=== PATIENT | male | born 1930 | race Hispanic/Latino ===

== ENCOUNTER 2018-07-25 18:39 | Emergency (ER) | payer OTHER, MEDICARE ==
[2018-07-25] MEDS ORDERED: CEFTRIAXONE SODIUM 1 GM ONE (18:55)
[2018-07-25 19:01] LABS: BASOPHILS % (AUTO) 0.4 % (0.0-5.0); EOSINOPHILS % (AUTO) 0.2 % (0.0-8.0); HEMATOCRIT 34.2 % (42-54); LYMPHOCYTES % (AUTO) 8.3 % (21.0-51.0); MEAN CORPUSCULAR HEMOGLOBIN 31.8 pg (27.0-33.0); MEAN CORPUSCULAR HGB CONC 33.9 g/dL (32.0-36.0); MEAN CORPUSCULAR VOLUME 93.8 fL (79-99); MONOCYTES % (AUTO) 5.5 % (3.0-13.0); NEUTROPHILS % (AUTO) 85.6 % (40.0-77.0); PLATELET COUNT (AUTO) 238 K/uL (130-400); RED BLOOD CELL COUNT(AUTO) 3.64 MIL/uL (4.50-6.20); RED CELL DISTRIBUTION WIDTH 13.6 % (11.0-15.5); WHITE BLOOD COUNT (AUTO) 12.1 K/uL (4.8-10.8)
[2018-07-25 19:26] LABS: CARBON DIOXIDE 23 mmol/L (21-32); CHLORIDE 108 mmol/L (101-111); CREATININE 1.2 mg/dL (0.5-1.5); GLOMERULAR FILTR. RATE CALC 61 mL/min (>60); GLUCOSE,RANDOM 93 mg/dL (70-105); POTASSIUM 3.6 mmol/L (3.5-5.1); SODIUM SERUM 142 mmol/L (136-145); UREA NITROGEN, BLOOD 25 mg/dL (7-18)
[2018-07-25] MEDS ORDERED: LEVOFLOXACIN 750 MG/D5W 150 ML 150 ML ONE (19:28)
[2018-07-25 19:29] LABS: INR 1.07 (0.85-1.15); PARTIAL THROMBOPLASTIN TIME 26.1 SEC (26.3-35.5); PROTHROMBIN TIME 11.2 SEC (9.6-11.6)
[2018-07-25 19:39] LABS: ALANINE AMINOTRANSFERASE 19 U/L (12-78); ASPARTATE AMINOTRANSFERASE 25 U/L (10-37); BILIRUBIN,TOTAL 0.6 mg/dL (0.2-1.0); CREATINE KINASE, TOTAL 47 U/L (21-232); MYOGLOBIN 60 ng/mL (10-92); TOTAL PROTEIN, SERUM 6.6 g/dL (6.0-8.3); TROPONIN I < 0.04 ng/mL (0.00-0.06)
[2018-07-25 19:50] LABS: APPEARANCE,URINE Clear (CLEAR); BILIRUBIN,URINE Negative (NEGATIVE); COLOR,URINE Yellow (YELLOW); GLUCOSE, URINE (UA) Negative (NEGATIVE); KETONES,URINE Trace mg/dL (NEGATIVE); LEUKOCYTE ESTERASE ,URINE Small (NEGATIVE); NITRATE,URINE Positive (NEGATIVE); OCCULT BLOOD,URINE Negative (NEGATIVE); PROTEIN,URINE Trace (NEGATIVE)
[2018-07-25 19:58] LABS: BACTERIA,URINE Few /HPF (None Seen); MUCUS,URINE Few LPF (None Seen); RBC,URINE 0-1 /HPF (0-1); SQUAMOUS EPITHELIAL CELL,UR Rare /HPF (0-2)
== END 2018-07-25 21:31 | disposition home or self-care (01) ==
LOC: EDH 18:39
DX: N39.0 Urinary tract infection, site not specified (principal); R05 Cough; G20 Parkinson's disease
CPT/HCPCS: 36415; 71045; 80053; 81001; 82550; 83605; 83874; 84484; 85025; 85610; 85730; 87040 ×2; 87077; 87088; 87186; 87804 ×2; 93005; 96365; 96366; 96375; 99285; J0696; J1956

== ENCOUNTER 2019-07-21 20:14 | Inpatient (IN) | payer OTHER, MEDICARE ==
[~2019-07-21] VITALS: Ht 165.1 cm; Wt 64.4 kg
[2019-07-21] MEDS ORDERED: ACETAMINOPHEN EXTRA STRENGTH 500 MG TABLET ONE (20:21)
[2019-07-21] MEDS ORDERED: SODIUM CHLORIDE 0.9% 1000ML 2,000 ML IV ONE (20:41)
[2019-07-21 20:42] LABS: BASOPHILS % (AUTO) 0.6 % (0.0-5.0); EOSINOPHILS % (AUTO) 0.2 % (0.0-8.0); HEMATOCRIT 35.1 % (42-54); LYMPHOCYTES % (AUTO) 14.2 % (21.0-51.0); MEAN CORPUSCULAR HEMOGLOBIN 32.1 pg (27.0-33.0); MEAN CORPUSCULAR HGB CONC 34.4 g/dL (32.0-36.0); MEAN CORPUSCULAR VOLUME 93.4 fL (79-99); MONOCYTES % (AUTO) 7.2 % (3.0-13.0); NEUTROPHILS % (AUTO) 77.8 % (40.0-77.0); PLATELET COUNT (AUTO) 268 K/uL (130-400); RED BLOOD CELL COUNT(AUTO) 3.76 MIL/uL (4.50-6.20); RED CELL DISTRIBUTION WIDTH 13.4 % (11.0-15.5); WHITE BLOOD COUNT (AUTO) 8.6 K/uL (4.8-10.8)
[2019-07-21] MEDS ORDERED: CEFTRIAXONE SODIUM 2 GM VIAL ONE (20:42)
[2019-07-21 20:48] LABS: APPEARANCE,URINE CLOUDY (CLEAR); BILIRUBIN,URINE SMALL (NEGATIVE); COLOR,URINE BROWN (YELLOW); GLUCOSE, URINE (UA) NEGATIVE (NEGATIVE); KETONES,URINE 5 mg/dL (NEGATIVE); LEUKOCYTE ESTERASE ,URINE MODERATE (NEGATIVE); NITRATE,URINE POSITIVE (NEGATIVE); OCCULT BLOOD,URINE LARGE (NEGATIVE); PH,URINE 6.5 (5.0-8.0); PROTEIN,URINE 100 mg/dL (NEGATIVE)
[2019-07-21 20:50] LABS: CARBON DIOXIDE 27 mmol/L (21-32); CHLORIDE 107 mmol/L (101-111); CREATININE 1.2 mg/dL (0.5-1.5); GLOMERULAR FILTR. RATE CALC 61 mL/min (>60); GLUCOSE,RANDOM 131 mg/dL (70-105); POTASSIUM 4.3 mmol/L (3.5-5.1); SODIUM SERUM 142 mmol/L (136-145); UREA NITROGEN, BLOOD 31 mg/dL (7-18)
[2019-07-21 20:55] LABS: INR 1.04 (0.85-1.15); PARTIAL THROMBOPLASTIN TIME 27.1 SEC (26.3-35.5); PROTHROMBIN TIME 10.9 SEC (9.6-11.6)
[2019-07-21 21:01] LABS: ALANINE AMINOTRANSFERASE 20 U/L (12-78); ALBUMIN 3.2 g/dL (3.5-5.0); ASPARTATE AMINOTRANSFERASE 32 U/L (10-37); BILIRUBIN,TOTAL 0.3 mg/dL (0.2-1.0); CREATINE KINASE, TOTAL 70 U/L (21-232); MYOGLOBIN 74 ng/mL (10-92); TOTAL PROTEIN, SERUM 7.1 g/dL (6.0-8.3); TROPONIN I < 0.04 ng/mL (0.00-0.06)
[2019-07-21 21:03] LABS: BACTERIA,URINE Many /HPF (None Seen); MUCUS,URINE Few LPF (None Seen); WBC,URINE 26-50 /HPF (0-1)
[2019-07-21] MEDS ORDERED: VANCOMYCIN 1GM+NS 250ML 250 ML IV ONE (21:41)
[2019-07-21 23:00] VITALS: BP 166/89
[2019-07-21] MEDS ORDERED: SODIUM CHLORIDE 0.9% 1000ML 1,000 ML IV ONE (23:30)
[2019-07-21] MEDS ORDERED: PHARMACY COMMUNICATION MISC SCH (23:45)
[2019-07-21] MEDS: SODIUM CHLORIDE 0.9% 1000ML 1,000 ML IV SCH (23:45)
[2019-07-21] MEDS ORDERED: IBUPROFEN 600 MG TABLET PO PRN (23:45)
[2019-07-22] MEDS ORDERED: ZOSYN 3.375GM+NS 50ML 50 ML IV SCH
[2019-07-22 03:00] VITALS: BP 102/87
[2019-07-22 08:00] VITALS: BP 186/89
--- NOTE | 2019-07-22 08:00 | NUR ---
PT WITH HOB UP AND REVIEW PLAN OF CARE WITH . . PT HAS A HX IF DEMENTIA. PT IS NOT ABLE TO FOCUS WITH SOME COMMANDS. BED LEVEL DOWN AND CALL LIGHT IN REACH.
[2019-07-22 11:38] VITALS: BP 150/71
[2019-07-22] MEDS ORDERED: ONDANSETRON HCL 4 MG/2 ML VIAL IV PRN (13:30)
[2019-07-22] MEDS ORDERED: LACTULOSE 20 GM/30 ML UDCUP PO PRN (13:30)
[2019-07-22] MEDS ORDERED: NITROGLYCERIN 0.4 MG SL TAB SL PRN (13:30)
[2019-07-22] MEDS ORDERED: DiphenhydrAMINE HCL 50 MG/ML VIAL IV PRN (13:30)
[2019-07-22] MEDS ORDERED: POTASSIUM CHLORIDE 20MEQ/100ML 100 ML IV PRN (13:30)
[2019-07-22] MEDS ORDERED: POTASSIUM CHLORIDE 20 MEQ ERTAB PO PRN (13:30)
[2019-07-22] MEDS ORDERED: LIDOCAINE HCL-MPF 1% 2ML VIAL IV PRN (13:30)
[2019-07-22] MEDS ORDERED: ACETAMINOPHEN 325 MG TAB PO PRN ×2 (13:30)
[2019-07-22] MEDS ORDERED: GUAIFENESIN-DM 200/20 MG 10 ML PO PRN (13:30)
[2019-07-22] MEDS ORDERED: CARB1TAB23 PO (13:37)
[2019-07-22] MEDS ORDERED: TRAZ150T79 PO (13:37)
[2019-07-22] MEDS: ZOSYN 3.375GM+NS 50ML 50 ML IV SCH ×2 (14:26→21:40)
[2019-07-22] MEDS: SODIUM CHLORIDE 0.9% 1000ML 1,000 ML IV SCH (14:27)
[2019-07-22] MEDS: FUROSEMIDE 10 MG/ML 2ML VIAL IV SCH (14:28)
[2019-07-22 16:00] VITALS: BP 172/103
[2019-07-22] MEDS: IPRATROPIUM/ALBUTEROL SULFATE 3 ML SOLUTION IH SCH ×2 (18:18→23:02)
[2019-07-22 19:00] VITALS: BP 191/92
[2019-07-22] MEDS: LEVODOPA PO SCH (21:00)
[2019-07-22] MEDS: CARBIDOPA PO SCH (21:00)
[2019-07-22] MEDS: TRAZODONE HCL 50 MG TAB PO SCH (21:00)
[2019-07-22] MEDS: FAMOTIDINE/PF 20 MG/2 ML VIAL IV SCH (21:39)
[2019-07-22] MEDS: HYDRALAZINE HCL 20 MG/ML VIAL IV PRN (21:40)
--- NOTE | 2019-07-22 21:46 | NUR ---
home medications already taken PATIENT'S REPORTS THAT SHE ALREADY ADMINISTERED THE DESERYL AND LEVODOPA FROM PATIENT'S HOME MEDICATIONS. INFORMED PATIENT AND TO INFORM THE NURSE WHEN TAKING MEDICATIONS AND THAT WE HAVE THE MEDICATIONS TO ADMINISTER TO THE PATIENT. PATIENT'S SAID SHE UNDERSTOOD FOR NEXT TIME.
[2019-07-22 23:00] VITALS: BP 137/75
--- NOTE | 2019-07-22 23:45 | NUR ---
RT UNABLE TO PROVIDE CPT PATIENT WITH INCREASED TREMORS AND AGITATION AT BEGINNING OF CPT. RT SAID SHE WAS UNSUCCESSFUL TO COMPLETE CPT. PRIOR TO TREATMENT PATIENT WAS CLEAR UPON MY ASSESSMENT. WILL CONTINUE TO MONITOR FOR ANY RESPIRATORY CHANGES.
[2019-07-23 03:00] VITALS: BP 136/82
[2019-07-23] MEDS: ZOSYN 3.375GM+NS 50ML 50 ML IV SCH ×3 (05:04→21:26)
[2019-07-23 05:45] LABS: BASOPHILS % (AUTO) 0.5 % (0.0-5.0); EOSINOPHILS % (AUTO) 0.1 % (0.0-8.0); HEMATOCRIT 33.7 % (42-54); LYMPHOCYTES % (AUTO) 24.3 % (21.0-51.0); MEAN CORPUSCULAR HEMOGLOBIN 32.3 pg (27.0-33.0); MEAN CORPUSCULAR HGB CONC 34.9 g/dL (32.0-36.0); MEAN CORPUSCULAR VOLUME 92.7 fL (79-99); NEUTROPHILS % (AUTO) 68.1 % (40.0-77.0); PLATELET COUNT (AUTO) 247 K/uL (130-400); RED BLOOD CELL COUNT(AUTO) 3.63 MIL/uL (4.50-6.20); RED CELL DISTRIBUTION WIDTH 13.4 % (11.0-15.5); WHITE BLOOD COUNT (AUTO) 10.1 K/uL (4.8-10.8)
[2019-07-23] MEDS ORDERED: HALOPERIDOL LACTATE 5 MG/ML VIAL IV SCH (05:45)
[2019-07-23 05:54] LABS: CREATININE 0.9 mg/dL (0.5-1.5); POTASSIUM 3.1 mmol/L (3.5-5.1)
[2019-07-23] MEDS: POTASSIUM CHLORIDE 10% ELIXIR 20 MEQ/15 ML UDCUP PO PRN (06:35)
[2019-07-23] MEDS: IPRATROPIUM/ALBUTEROL SULFATE 3 ML SOLUTION IH SCH ×4 (07:11→23:12)
[2019-07-23] MEDS: CARBIDOPA PO SCH ×2 (07:56→21:00)
[2019-07-23] MEDS: FAMOTIDINE/PF 20 MG/2 ML VIAL IV SCH ×2 (07:56→21:23)
[2019-07-23] MEDS: LEVODOPA PO SCH ×2 (07:56→21:00)
[2019-07-23 08:00] VITALS: BP 153/79
[2019-07-23] MEDS ORDERED: ENOXAPARIN SODIUM 30 MG/0.3 ML SQ SCH (09:00)
--- NOTE | 2019-07-23 10:00 | NUR ---
MBSS COMPLETED. +S/S OF ASPIRATION WITH ALL TEXTURES. RECOMMEND NPO, LONG-TERM ALTERNATE MEANS OF NUTRITION/HYDRATION. PRIMARY OPERATOR EDUCATED Pt'S AND DAUGHTER ON RISKS AND CONSEQUENCES OF ASPIRATION INCLUDING: ASPIRATION PNEUMONIA, DRUG RESISTANT PNEUMONIA. PRIMARY OPERATOR REVIEWED RESULTS AND RECOMMENDATIONS IN DETAIL. STATED THAT SHE DID NOT WANT A PEG FOR HER , BUT WAS WILLING TO AGREE ON MODIFIED DIET. PRIMARY OPERATOR EXPLAINED THAT ASPIRATION RISK WOULD STILL BE PRESENT EVEN ON MODIFIED DIET, BUT RECOMMENDATIONS WOULD BE MADE WITH RISK OF ASPIRATION. SHE VERBALIZED UNDERSTANDING AT THIS TIME. RECOMMENDATIONS: 1. NPO, LONG-TERM ALTERNATE MEANS OF NUTRITION/HYDRATION. 2. IF FAMILY REFUSES PEG, RECOMMEND PUREED, HONEY-THICK LIQUIDS, PILLS CRUSHED WITH APPLESAUCE. SAFE SWALLOW PRECAUTIONS: SEATED AT 90, SLOW RATE, CUE FOR RE-SWALLOW, CHECK FOR ORAL RESIDUE AFTER P.O. Addendum: 07/24/19 at 0837 by ALBERTINA GREWAL Amended: Links added.
--- NOTE | 2019-07-23 10:35 | NUR ---
TO RADIOLOGY DEPT FOR A MBSS TEST .[facility] . DUE TO HER .DEMENITA STATUS. WILL BE GOING WITH PT . AND STAFF
[2019-07-23 12:00] VITALS: BP 127/60
--- NOTE | 2019-07-23 12:21 | NUR ---
DC PLAN PATIENT IS IN BED, MITTENS ON, AGITATED AT THE MOMENT. AND DAUGHTER AT BEDSIDE, STATES PATIENT REQUIRES ASSISTANCE WITH ALL ADLS. PATIENT LIVES WITH SPOUSE, DAUGHTER IS PROVIDER 4HR/DAY MON-FRID AND 2HR/DAY ON SAT-SUN. PATIENT ALSO HAS WC, WALKER, AND CANE AT HOME. NEW REFERRAL TO SNF, OPTIONS GIVEN TO SPOUSE. SPOUSE TO REVIEW SNF AND GET BACK TO ME ON DECISION. SANIYA PENDING SIGNATURE Addendum: 07/23/19 at 1224 by MARYCRUZ FERRO RN CM Amended: Links added.
[2019-07-23] MEDS: FUROSEMIDE 10 MG/ML 2ML VIAL IV SCH (13:30)
--- NOTE | 2019-07-23 14:46 | NUR ---
1421 had sign IM Letter,pt is confused.faxed im letter to [id number] and placed in chart under consent tab.
--- NOTE | 2019-07-23 15:40 | NUR ---
DR. JEFFERSON HERE AND SPOKE WITH PT OF CARE, FAMILY DECIDED PT TO GET A PEG PLACEMENT . DR. JEFFERSON . EXPLAIN OF RISK AND FOLLOWUP . QUESTIONS WITH DR. DANISHA RODRIGUES
[2019-07-23 16:00] VITALS: BP 187/107
[2019-07-23] MEDS: HYDRALAZINE HCL 20 MG/ML VIAL IV PRN (16:59)
[2019-07-23] MEDS: SODIUM CHLORIDE 0.9% 1000ML 1,000 ML IV SCH ×2 (17:02→23:30)
--- NOTE | 2019-07-23 18:24 | NUR ---
DR. FOREMAN HERE,AND SPOKE WITH FAMILY OF PEG PLACEMENT ,EDUCATION IN [facility] WAS ALSO OFFER
[2019-07-23 19:57] VITALS: BP 139/77
--- NOTE | 2019-07-23 20:57 | NUR ---
PAGED BENCHMARK PATIENT BLEEDING FROM BOWERS INSERTION SITE. BRIGHT RED BLOOD IN BOWERS WELL IN BRIEF. PATIENT CONFUSED, CURRENTLY WEARING MITTENS. AT BEDSIDE. WAITING FOR PHYSICIAN TO CALL BACK.
[2019-07-23] MEDS: TRAZODONE HCL 50 MG TAB PO SCH (21:00)
--- NOTE | 2019-07-23 21:07 | NUR ---
RE-PAGED PHYSICIAN WAITING FOR A CALL BACK R/T BLEEDING AT BOWERS CATHETER SITE.
--- NOTE | 2019-07-23 21:21 | NUR ---
REPAGED BENCHMARK PENDING CALL BACK. THIRD PAGE R/T ROBINSON.
--- NOTE | 2019-07-23 21:31 | NUR ---
ANH RETURNED PAGE PER ANH POTTS, TO MONITOR BOWERS OUTPUT. IF URINE CONTINUES TO DRAIN, LEAVE BOWERS IN PLACE. IF OUTPUT STOPS, DO A BLADDER SCAN TO DETERMINE IF THERE IS RETENTION. IRRIGATE BOWERS NEEDED IF THERE IS AN OBSTRUCTION. BRIGHT RED BLOOD CONTINUES TO DRAIN FROM BOWERS AT THIS TIME.
[2019-07-23 23:51] VITALS: BP 170/97
[2019-07-24] VITALS (26 sets, daily range): BP systolic 119–201; BP diastolic 59–119
[2019-07-24] MEDS: ZOSYN 3.375GM+NS 50ML 50 ML IV SCH ×2 (05:02→15:52)
[2019-07-24 06:17] LABS: HEMATOCRIT 32.7 % (42-54); MEAN CORPUSCULAR HEMOGLOBIN 32.2 pg (27.0-33.0); MEAN CORPUSCULAR HGB CONC 34.3 g/dL (32.0-36.0); MEAN CORPUSCULAR VOLUME 93.9 fL (79-99); PLATELET COUNT (AUTO) 214 K/uL (130-400); RED BLOOD CELL COUNT(AUTO) 3.48 MIL/uL (4.50-6.20); RED CELL DISTRIBUTION WIDTH 13.1 % (11.0-15.5); WHITE BLOOD COUNT (AUTO) 7.5 K/uL (4.8-10.8)
[2019-07-24 06:37] LABS: POTASSIUM 3.7 mmol/L (3.5-5.1)
[2019-07-24] MEDS: IPRATROPIUM/ALBUTEROL SULFATE 3 ML SOLUTION IH SCH ×4 (07:12→23:52)
[2019-07-24] MEDS: CARBIDOPA PO SCH ×2 (09:00→21:00)
[2019-07-24] MEDS: LEVODOPA PO SCH ×2 (09:00→21:00)
--- NOTE | 2019-07-24 10:02 | NUR ---
telephone maintenance mechanic bisi aware of hematuria; states will see pt.
--- NOTE | 2019-07-24 10:08 | NUR ---
manual irrigations being implemented. for evacuation of blood clot.
--- NOTE | 2019-07-24 10:30 | NUR ---
DC NOTE SANIYA SIGNED, REFERRAL SENT TO [facility] PER MD REQUEST FOR SNF. CLINICALS FAXED TO JAZMINE AT [facility]. JAZMINE CALLED, MADE AWARE OF REFERRAL, PENDING CALCINER FEEDER VISIT. [facility] PAPERWORK FAXED WELL. PENDING PEG PLACEMENT
[2019-07-24] MEDS ORDERED: LIDOCAINE HCL 1% 20 ML VIAL ONE (13:07)
[2019-07-24] MEDS ORDERED: PROPOFOL 10 MG/ML 20ML VIAL IV ONE (13:07)
[2019-07-24] MEDS ORDERED: CEFAZOLIN SODIUM 1 GM VIAL ONE (13:10)
[2019-07-24] MEDS: FUROSEMIDE 10 MG/ML 2ML VIAL IV SCH (13:30)
--- NOTE | 2019-07-24 14:00 | NUR ---
[facility] FOLLOW UP PER JAZMINE AT [facility], WANTING LONG-TERM PLACEMENT FOR PATIENT AND FACILITY DOES NOT HAVE LONG-TERM BEDS. AT BEDSIDE. LONG-TERM VS SHORT-TERM SNF ORDER TEACHING DONE WITH PATIENT'S , VERBALIZED UNDERSTANDING. PER , OK WITH [facility] REFERRAL FOR SHORT-TERM PHYSICAL THERAPY. J[facility] CALLED, VERBALIZED UNDERSTANDING OF REFERRAL, WILL VISIT PROCESS SNF REFERRAL. CLINICALS PREVIOUSLY FAXED TO FACILITY.
--- NOTE | 2019-07-24 14:00 | NUR ---
s/p Peg tube placement
--- NOTE | 2019-07-24 14:33 | NUR ---
RD Notification - Tube Feeding TF Recommendations: Jevity 1.5, Initiated at 25mls/hr for first 5 hrs, increase by 5mls every 5 hrs to goal of 50mls/hr (1200mL/1800kcal/77gm Protein). Pt away for PEG Placement, chart unavailable at time of visit. Tube feeding recommendations to be placed in Pt chart. Pt admitted for UTI. Nonverbal as per EMR. Pt with oropharyngeal dysphagia, S/S of aspiration with all textures as per NUCLEAR OFFICER. Pt LBM 07/22. Pt monitored labs: Ca 8.0, Alb 3.2, Hgb 11.2. RD to continue to monitor. Please notify RD as additional nutrition concerns arise. Thank you. Addendum: 07/24/19 at [address] Amended: Links added.
[2019-07-24] MEDS: HYDRALAZINE HCL 20 MG/ML VIAL IV PRN (15:36)
[2019-07-24] MEDS: FAMOTIDINE/PF 20 MG/2 ML VIAL IV SCH ×2 (15:52→21:04)
--- NOTE | 2019-07-24 16:00 | NUR ---
dr. stein paged re; hematuria pending call back.
[2019-07-24] MEDS ORDERED: MORPHINE SULFATE 2 MG/ML 1ML SYG ONE (16:56)
--- NOTE | 2019-07-24 17:45 | NUR ---
manual irrigations fo f/c implemented.
--- NOTE | 2019-07-24 20:50 | NUR ---
rn shift mgr nurse aware pending dr. stein call back.
[2019-07-24] MEDS: TRAZODONE HCL 50 MG TAB PO SCH (21:05)
[2019-07-24] MEDS: POTASSIUM CHLORIDE 10% ELIXIR 20 MEQ/15 ML UDCUP PO PRN (21:06)
[2019-07-24] MEDS: SODIUM CHLORIDE 0.9% 1000ML 1,000 ML IV SCH (21:19)
--- NOTE | 2019-07-24 21:36 | NUR ---
HOME MEDICATION GIVEN LEVODOPA GIVEN ORDERED VIA PEG
--- NOTE | 2019-07-25 01:50 | NUR ---
Peg tube patient on 40 ml/hr of Jevity 1.5. increased feeding to 45 ml/hr at 00:00 on 07/26/19. Will attempt to increase feeding to 50 ml/hr at 05:00 am. Flushed tube with 176 ml of water at 22:00 and will flush again at 04:00. Patient tolerating feedings.
[2019-07-25 03:00] VITALS: BP 134/87
[2019-07-25 05:19] LABS: HEMATOCRIT 30.1 % (42-54); MEAN CORPUSCULAR HEMOGLOBIN 31.4 pg (27.0-33.0); MEAN CORPUSCULAR HGB CONC 33.4 g/dL (32.0-36.0); MEAN CORPUSCULAR VOLUME 93.9 fL (79-99); PLATELET COUNT (AUTO) 211 K/uL (130-400); RED BLOOD CELL COUNT(AUTO) 3.21 MIL/uL (4.50-6.20); RED CELL DISTRIBUTION WIDTH 13.2 % (11.0-15.5); WHITE BLOOD COUNT (AUTO) 11.1 K/uL (4.8-10.8)
[2019-07-25 05:37] LABS: CREATININE 0.9 mg/dL (0.5-1.5); POTASSIUM 3.6 mmol/L (3.5-5.1)
[2019-07-25] MEDS: IPRATROPIUM/ALBUTEROL SULFATE 3 ML SOLUTION IH SCH ×3 (06:52→18:08)
[2019-07-25] MEDS: CARBIDOPA PO SCH ×2 (09:00→21:10)
[2019-07-25] MEDS: LEVODOPA PO SCH ×2 (09:00→21:10)
[2019-07-25] MEDS: FAMOTIDINE/PF 20 MG/2 ML VIAL IV SCH ×2 (09:23→21:09)
[2019-07-25 12:00] VITALS: BP 129/62
[2019-07-25] MEDS: FUROSEMIDE 10 MG/ML 2ML VIAL IV SCH (12:38)
--- NOTE | 2019-07-25 14:38 | NUR ---
DR. JIMENEZ D/C BOWERS CATH. PT PENDING TO VOID
--- NOTE | 2019-07-25 17:58 | NUR ---
PT VOIDED X3. SLIGHT BLOOD TINGE URINE NO DISTRESS.
[2019-07-25 20:00] VITALS: BP 121/64
[2019-07-25] MEDS: TRAZODONE HCL 50 MG TAB PO SCH (21:08)
[2019-07-25] MEDS: POTASSIUM CHLORIDE 10% ELIXIR 20 MEQ/15 ML UDCUP PO PRN (21:09)
--- NOTE | 2019-07-25 21:30 | NUR ---
paged Kell Bah for patient's fever of 100.7. Blood pressure 141/85, respirations 21, pulse 103, and saturation of 95 in room air. He ordered to give Acetaminophen through peg tube and recheck temperature. no other orders received
[2019-07-25] MEDS: ACETAMINOPHEN 325 MG TAB PO PRN (22:05)
[2019-07-26] VITALS: BP 121/64
[2019-07-26] MEDS: IPRATROPIUM/ALBUTEROL SULFATE 3 ML SOLUTION IH SCH ×5 (00:16→23:02)
--- NOTE | 2019-07-26 01:00 | NUR ---
paged Alber Bah again about patient's fever of 101.8 degrees Fahrenheit. He ordered another dose of 650 mg of acetaminophen and ice packs.
[2019-07-26] MEDS: ACETAMINOPHEN 325 MG TAB PO PRN (02:08)
--- NOTE | 2019-07-26 03:45 | NUR ---
fever patient's fever resolved. temperature is 98.8 degrees farenheit orally.
[2019-07-26 04:00] VITALS: BP 135/63
[2019-07-26 07:51] LABS: HEMATOCRIT 28.9 % (42-54); MEAN CORPUSCULAR HEMOGLOBIN 32.5 pg (27.0-33.0); MEAN CORPUSCULAR HGB CONC 34.3 g/dL (32.0-36.0); MEAN CORPUSCULAR VOLUME 94.9 fL (79-99); PLATELET COUNT (AUTO) 188 K/uL (130-400); RED BLOOD CELL COUNT(AUTO) 3.04 MIL/uL (4.50-6.20); RED CELL DISTRIBUTION WIDTH 13.6 % (11.0-15.5); WHITE BLOOD COUNT (AUTO) 7.9 K/uL (4.8-10.8)
[2019-07-26 08:00] VITALS: BP 181/75
[2019-07-26 08:00] LABS: CREATININE 0.9 mg/dL (0.5-1.5); POTASSIUM 3.8 mmol/L (3.5-5.1)
--- NOTE | 2019-07-26 08:00 | NUR ---
called molding technician ashley mathews; no abt's, fever 101.0 orders entered.
--- NOTE | 2019-07-26 08:10 | NUR ---
bp 180's pt passing clots, pain resolved.
[2019-07-26] MEDS: LEVODOPA PO SCH ×2 (09:00→21:47)
[2019-07-26] MEDS: CARBIDOPA PO SCH ×2 (09:00→21:47)
--- NOTE | 2019-07-26 09:00 | NUR ---
[facility] FOLLOW UP PER [facility] REP, PENDING AUTHORIZATION FOR SNF. WILL FOLLOW UP FOR AUTHORIZATION PERIODICALLY THRU OUT THE DAY.
[2019-07-26] MEDS: ZOSYN 3.375GM+NS 50ML 50 ML IV SCH ×2 (11:16→16:11)
[2019-07-26] MEDS: FAMOTIDINE/PF 20 MG/2 ML VIAL IV SCH ×2 (11:16→21:40)
[2019-07-26 12:00] VITALS: BP 157/72
[2019-07-26] MEDS: FUROSEMIDE 10 MG/ML 2ML VIAL IV SCH (13:30)
--- NOTE | 2019-07-26 14:00 | NUR ---
RD Follow up Pt tolerating tube feedings, Jevity 1.5 @40mls/hr (1440kcals/61gm protein), Goal of 50 mls/hr ( 1800kcal, 77gm Protein) to meet nutrition needs. Pt with urine retention, pulled out catheter, pending evaluation as per EMR. Pt monitored labs: Na 146, Cl 115, BUN 22, Glu 144, Ca 8.1, Alb 3.2. RD to continue to monitor. Please notify RD as additional nutrition concerns arise. Thank you. Addendum: 07/26/19 at [address] Amended: Links added.
--- NOTE | 2019-07-26 15:30 | NUR ---
PT WITH 610 ML OF URINE PER BLADDER SCAN DR. BARBARA GORDON TO INSERT COUDE BOWERS CATHETER. 620 ML OF DARK URINE OUTPUT.
[2019-07-26 16:00] VITALS: BP 176/92
--- NOTE | 2019-07-26 16:00 | NUR ---
bp 170's, passing clots, catherine inserted
[2019-07-26] MEDS: SODIUM CHLORIDE 0.9% 1000ML 1,000 ML IV SCH ×2 (16:13→23:30)
[2019-07-26 19:15] VITALS: BP 166/86
[2019-07-26] MEDS: TRAZODONE HCL 50 MG TAB PO SCH (21:40)
[2019-07-27] VITALS (7 sets, daily range): BP systolic 103–167; BP diastolic 50–89
[2019-07-27] MEDS: ZOSYN 3.375GM+NS 50ML 50 ML IV SCH ×4 (00:26→21:42)
[2019-07-27 05:35] LABS: CREATININE 0.8 mg/dL (0.5-1.5); POTASSIUM 3.9 mmol/L (3.5-5.1)
[2019-07-27 05:40] LABS: BAND NEUTROPHILS % (MANUAL) 1 % (0-2); EOSINOPHILS % (MANUAL) 3 % (1-6); LYMPHOCYTES % (MANUAL) 15 % (22-44); MONOCYTES % (MANUAL) 5 % (2-9); SEGMENTED NEUTROPHILS % 76 % (40-70)
[2019-07-27 05:41] LABS: MAN.DIFF COMMENT-IMPRESSION MANUAL DIFFERENTIAL
[2019-07-27 05:42] LABS: PLATELET MORPHOLOGY COMMENT ADEQUATE
[2019-07-27 05:47] LABS: HEMATOCRIT 27.9 % (42-54); MEAN CORPUSCULAR HEMOGLOBIN 31.5 pg (27.0-33.0); MEAN CORPUSCULAR HGB CONC 33.7 g/dL (32.0-36.0); MEAN CORPUSCULAR VOLUME 93.4 fL (79-99); PLATELET COUNT (AUTO) 208 K/uL (130-400); RED BLOOD CELL COUNT(AUTO) 2.99 MIL/uL (4.50-6.20); RED CELL DISTRIBUTION WIDTH 13.5 % (11.0-15.5); WHITE BLOOD COUNT (AUTO) 7.7 K/uL (4.8-10.8)
[2019-07-27] MEDS: IPRATROPIUM/ALBUTEROL SULFATE 3 ML SOLUTION IH SCH ×4 (06:27→23:07)
--- NOTE | 2019-07-27 08:00 | NUR ---
AM SHIFT ASSESSMENT, AWAKE, HEAD OF BED UP 45DG. FEEDING VIA PEG AT 50ML/HR. BOWERS TO BEDSIDE DRAINAGE, URINE BLOODY TINGED HAS MITTENS ON HE PULLS ON IV AND BOWERS CATH. FAMILY MEMBER AT BEDSIDE.
[2019-07-27] MEDS: FAMOTIDINE/PF 20 MG/2 ML VIAL IV SCH ×2 (08:47→21:42)
[2019-07-27] MEDS: CARBIDOPA PO SCH ×2 (08:47→21:42)
[2019-07-27] MEDS: LEVODOPA PO SCH ×2 (08:47→21:42)
[2019-07-27] MEDS: FUROSEMIDE 10 MG/ML 2ML VIAL IV SCH (13:30)
--- NOTE | 2019-07-27 18:08 | NUR ---
DR. JIMENEZ CALLED BACK, UPDATE ON HEMATURIA GIVEN, NO CLOTS TODAY. NO ORDERS, CONTINUE TO KEEP DOING WHAT WE DOING. NO BLOOD CLOTS TODAY AND IRRIGATES EASY AND WELL
[2019-07-27] MEDS: TRAZODONE HCL 50 MG TAB PO SCH (21:42)
[2019-07-27] MEDS: SODIUM CHLORIDE 0.9% 1000ML 1,000 ML IV SCH (23:30)
[2019-07-28 03:42] VITALS: BP 142/94
[2019-07-28] MEDS: ZOSYN 3.375GM+NS 50ML 50 ML IV SCH ×3 (05:27→21:59)
[2019-07-28] MEDS: IPRATROPIUM/ALBUTEROL SULFATE 3 ML SOLUTION IH SCH ×4 (06:43→22:59)
[2019-07-28 07:00] VITALS: BP 153/61
[2019-07-28] MEDS: FAMOTIDINE/PF 20 MG/2 ML VIAL IV SCH ×2 (09:41→21:59)
[2019-07-28] MEDS: CARBIDOPA PO SCH ×2 (09:45→22:09)
[2019-07-28] MEDS: LEVODOPA PO SCH ×2 (09:45→22:09)
[2019-07-28] MEDS: MORPHINE SULFATE 2 MG/ML 1ML SYG IVP PRN ×2 (10:26→16:49)
[2019-07-28 11:00] VITALS: BP 153/75
--- NOTE | 2019-07-28 11:31 | NUR ---
CALLED IN TO ROOM BY SPOUSE, STATES PT. HAVING TROUBLE. HEAD OF BED IS UP. PLACED ON 2LITERS OF O2 AND CALLED RESPIRATORY TO GIVE PT. A TX. CALLED NIGEL BRENNER A STAT CXR ORDERED LUNG SOUNDS OK PER RT STATES UPPER AIRWAY PROBLEM.
--- NOTE | 2019-07-28 11:40 | NUR ---
CHARGE NURSE CALLED NIGEL CHEN NOT ATTENDING PROVIDER, AND ORDERS GIVEN AND ENTERED, TUBE FEEDING SOPPED AND CXR ORDERED. NOW PLACED ON VENTI MASK 50% WAS ALSO SUCTIONED BY RT. AND NOW SEEMS TO BE BREATHING EASIER
--- NOTE | 2019-07-28 12:13 | NUR ---
BREATHING MUCH EASIER AND IS CALM, LUNG SOUNDS WITH RHONCHI BILATERAL.
[2019-07-28] MEDS: FUROSEMIDE 10 MG/ML 2ML VIAL IV SCH (13:30)
[2019-07-28] MEDS ORDERED: IOHEXOL-350 75 ML VIAL IV ONE (15:15)
--- NOTE | 2019-07-28 15:32 | NUR ---
MET W FAMILY AT BEDSIDE SPOUSE AT BEDSIDE, ASKING ABOUT , WHETHER PT WILL BE ABLE TO GO BY AMBULANCE TO [facility] AT TIME OF DISCHARGE ADIVSED HER THAT PT AUTH REQUEST WILL BE SENT TO INSURANCE RE: AMBULANCE BUT AT THIS POINT LOOKS LIKE HE WILL REQUIRE IT FAMILY VERBALIZED UNDERSTANDING PT IS NOT YET READY TO LEAVE HOSPITAL- STILL ON VENTI MASK , WITH MITTENS TO PREVENT HIM TAKING MASK OFF, AND CONDITION REQUIRING VIGILENCE Addendum: 07/28/19 at 1536 by SUSIE SEPULVEDA RN CM Amended: Links added.
--- NOTE | 2019-07-28 15:42 | NUR ---
to rad. dept. now for ct-chest angiogram.
--- NOTE | 2019-07-28 15:43 | NUR ---
URINE BEGINNING TO CLEAR UP AND OUTPUT HAS INCREASED.
[2019-07-28 16:00] VITALS: BP 119/69
--- NOTE | 2019-07-28 18:44 | NUR ---
Pt with temp 102.0. Heart rate 106, resp 18-20, unlabored, but congested. BP 148/77. O2 sat 100% on 2lpm. PRN morphine and tylenol already given by primary nurse; ice pack applied by same. Notified GRICELDA Goldman of pt status. She stated HR due to temp. Rec'd orders for stat blood cultures, bnp, lactic acid, also RT to do CPT, suction if needed. Orders entered.
[2019-07-28 20:00] VITALS: BP 155/97
[2019-07-28] MEDS: TRAZODONE HCL 50 MG TAB PO SCH (21:59)
[2019-07-29] VITALS (7 sets, daily range): BP systolic 126–157; BP diastolic 59–88
[2019-07-29] MEDS: SODIUM CHLORIDE 0.9% 1000ML 1,000 ML IV SCH ×2 (03:57→22:39)
[2019-07-29] MEDS: ZOSYN 3.375GM+NS 50ML 50 ML IV SCH ×3 (05:37→22:20)
[2019-07-29 06:18] LABS: HEMATOCRIT 26.5 % (42-54); MEAN CORPUSCULAR HEMOGLOBIN 31.3 pg (27.0-33.0); MEAN CORPUSCULAR HGB CONC 33.5 g/dL (32.0-36.0); MEAN CORPUSCULAR VOLUME 93.4 fL (79-99); PLATELET COUNT (AUTO) 231 K/uL (130-400); RED BLOOD CELL COUNT(AUTO) 2.83 MIL/uL (4.50-6.20); RED CELL DISTRIBUTION WIDTH 13.3 % (11.0-15.5); WHITE BLOOD COUNT (AUTO) 9.4 K/uL (4.8-10.8)
[2019-07-29 06:24] LABS: CREATININE 0.8 mg/dL (0.5-1.5); POTASSIUM 4.1 mmol/L (3.5-5.1)
[2019-07-29] MEDS: IPRATROPIUM/ALBUTEROL SULFATE 3 ML SOLUTION IH SCH ×4 (07:23→23:12)
[2019-07-29 08:19] LABS: EOSINOPHILS % (MANUAL) 1 % (1-6); LYMPHOCYTES % (MANUAL) 8 % (22-44); MONOCYTES % (MANUAL) 3 % (2-9); SEGMENTED NEUTROPHILS % 88 % (40-70)
[2019-07-29 08:20] LABS: MAN.DIFF COMMENT-IMPRESSION MANUAL DIFFERENTIAL; PLATELET MORPHOLOGY COMMENT ADEQUATE
[2019-07-29] MEDS: LEVODOPA PO SCH ×2 (09:00→22:20)
[2019-07-29] MEDS: FAMOTIDINE/PF 20 MG/2 ML VIAL IV SCH ×3 (09:00→22:20)
[2019-07-29] MEDS: CARBIDOPA PO SCH ×2 (09:00→22:20)
--- NOTE | 2019-07-29 10:58 | NUR ---
DC PLANNING- AUT EXPIRING SPOKE TO [facility] THIS MORNING. AUTH EXPIRING PT MAY NOT BE READY FOR DISCHARGE, WILL HAVE TO SUBMIT FOR NEW AUTH ANTHONY AMADOR AT [facility], ADIVSED OF SAME AND OF PTS TEMP AND NOT ABLE TO DC TODAY, WILL SEE IF AFEBRIL X24 HRS THEN WILL RE SUBMIT.
[2019-07-29] MEDS: FUROSEMIDE 10 MG/ML 2ML VIAL IV SCH (14:35)
--- NOTE | 2019-07-29 18:00 | NUR ---
FEEDINGS Tube feedings were resumed as ordered. Tolerating well. HOB at 45 degrees.
[2019-07-29] MEDS: TRAZODONE HCL 50 MG TAB PO SCH (22:20)
[2019-07-30] VITALS (7 sets, daily range): BP systolic 87–162; BP diastolic 42–104
[2019-07-30] MEDS ORDERED: LORAZEPAM 2 MG/ML 1 ML VIAL IVP PRN (02:15)
[2019-07-30] MEDS ORDERED: LORAZEPAM 2 MG/ML 1 ML VIAL ONE (02:28)
[2019-07-30] MEDS: ZOSYN 3.375GM+NS 50ML 50 ML IV SCH ×3 (05:39→21:55)
[2019-07-30 06:30] LABS: HEMATOCRIT 26.3 % (42-54); MEAN CORPUSCULAR HEMOGLOBIN 31.4 pg (27.0-33.0); MEAN CORPUSCULAR HGB CONC 33.4 g/dL (32.0-36.0); MEAN CORPUSCULAR VOLUME 94.1 fL (79-99); PLATELET COUNT (AUTO) 253 K/uL (130-400); RED BLOOD CELL COUNT(AUTO) 2.79 MIL/uL (4.50-6.20); RED CELL DISTRIBUTION WIDTH 13.2 % (11.0-15.5); WHITE BLOOD COUNT (AUTO) 7.2 K/uL (4.8-10.8)
[2019-07-30 06:37] LABS: CREATININE 1.3 mg/dL (0.5-1.5); POTASSIUM 3.9 mmol/L (3.5-5.1)
[2019-07-30] MEDS: IPRATROPIUM/ALBUTEROL SULFATE 3 ML SOLUTION IH SCH ×4 (07:06→23:16)
[2019-07-30] MEDS: LEVODOPA PO SCH ×2 (09:40→21:55)
[2019-07-30] MEDS: CARBIDOPA PO SCH ×2 (09:40→21:55)
[2019-07-30] MEDS: FAMOTIDINE/PF 20 MG/2 ML VIAL IV SCH ×2 (09:40→21:55)
[2019-07-30] MEDS: FUROSEMIDE 10 MG/ML 2ML VIAL IV SCH (13:07)
--- NOTE | 2019-07-30 16:19 | NUR ---
RD FOLLOW UP Pt with Diet order discrepancy: NPO vs Tube Feeding Order not recorded. Pt receiving Jevity 1.5 @50mls/hr as per Care trends. 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 Pt NICHOLE 07/29. Pt monitored labs: H/H 8.8/26.3, BUN 26, GFR 55, Glu 178, Ca 8.1, Alb 3.2. RD to continue to monitor. Please notify RD as additional nutrition concerns arise. Thank you. Addendum: 07/30/19 at [address] Amended: Links added.
--- NOTE | 2019-07-30 16:30 | NUR ---
RESUBMITTED AUTH FOR [facility]. THIS CM ASKED IF PT WILL BE READY TO GO IF AUTH RECD AND WAS TOLD YES. [facility] ADVISED AND UPDATED FAXED.
--- NOTE | 2019-07-30 16:54 | NUR ---
HOSPICE EDUCATION Sw met with pt's and daughter and educated on hospice. states that she plan is for pt to go to [facility] for PT and wasn't aware of hospice being recommended. SW educated on hospice at [place], hospice house and home. Home is not an option, per family. Family reports that pt is very angry at them for PEG placement, pt wanting to eat. Family concerned that this anger and resentment will only get worse with time. and daughter encouraged to start working on their plan B, should SNF not be approved or helpful to pt. Encouraged them to consider SNF, and let pt convert to long term placement and then do hospice. Family to discuss and let us know about decision. CM informed
[2019-07-30] MEDS ORDERED: TRAZODONE HCL 100 MG TABLET PO SCH (21:00)
[2019-07-31] MEDS: SODIUM CHLORIDE 0.9% 1000ML 1,000 ML IV SCH (00:16)
[2019-07-31 03:00] VITALS: BP 103/55
[2019-07-31] MEDS: ZOSYN 3.375GM+NS 50ML 50 ML IV SCH ×3 (05:44→20:45)
[2019-07-31] MEDS: FUROSEMIDE 10 MG/ML 2ML VIAL IV SCH ×3 (05:45→18:18)
[2019-07-31] MEDS: IPRATROPIUM/ALBUTEROL SULFATE 3 ML SOLUTION IH SCH ×4 (06:17→23:28)
[2019-07-31 06:20] LABS: BASOPHILS % (AUTO) 0.6 % (0.0-5.0); HEMATOCRIT 23.6 % (42-54); LYMPHOCYTES % (AUTO) 12.7 % (21.0-51.0); MEAN CORPUSCULAR HEMOGLOBIN 33.3 pg (27.0-33.0); MEAN CORPUSCULAR HGB CONC 35.4 g/dL (32.0-36.0); MEAN CORPUSCULAR VOLUME 94.1 fL (79-99); MONOCYTES % (AUTO) 7.6 % (3.0-13.0); NEUTROPHILS % (AUTO) 74.1 % (40.0-77.0); PLATELET COUNT (AUTO) 260 K/uL (130-400); RED BLOOD CELL COUNT(AUTO) 2.51 MIL/uL (4.50-6.20); RED CELL DISTRIBUTION WIDTH 13.2 % (11.0-15.5); WHITE BLOOD COUNT (AUTO) 5.4 K/uL (4.8-10.8)
[2019-07-31 06:30] LABS: POTASSIUM 3.6 mmol/L (3.5-5.1)
[2019-07-31 08:00] VITALS: BP 122/57
[2019-07-31] MEDS: FAMOTIDINE/PF 20 MG/2 ML VIAL IV SCH ×2 (10:57→20:45)
[2019-07-31 11:00] VITALS: BP 156/78
[2019-07-31] MEDS: LEVODOPA PO SCH ×2 (11:09→20:46)
[2019-07-31] MEDS: CARBIDOPA PO SCH ×2 (11:09→20:46)
[2019-07-31 16:00] VITALS: BP 166/88
--- NOTE | 2019-07-31 18:47 | NUR ---
AUTH RECD,// NO AUTH REC, ADVISED THAT AUTH WAS RECD FOR [facility] THIS AFTERNOON, BUT REP CALLED BACK AND INFORMED THIS CM THAT WAS A MISTAKE, AUTH IS STILL PENDING. SHOULD EXPECT TOMORROW
[2019-07-31 19:00] VITALS: BP 164/76
[2019-07-31] MEDS ORDERED: TRAZODONE HCL 50 MG TAB PO PRN (21:00)
[2019-07-31 23:00] VITALS: BP 135/58
[2019-08-01 03:00] VITALS: BP 135/70
[2019-08-01 05:24] LABS: BASOPHILS % (AUTO) 0.7 % (0.0-5.0); EOSINOPHILS % (AUTO) 4.4 % (0.0-8.0); HEMATOCRIT 26.6 % (42-54); LYMPHOCYTES % (AUTO) 11.5 % (21.0-51.0); MEAN CORPUSCULAR HEMOGLOBIN 32.1 pg (27.0-33.0); MEAN CORPUSCULAR HGB CONC 34.4 g/dL (32.0-36.0); MEAN CORPUSCULAR VOLUME 93.2 fL (79-99); MONOCYTES % (AUTO) 7.2 % (3.0-13.0); NEUTROPHILS % (AUTO) 76.2 % (40.0-77.0); PLATELET COUNT (AUTO) 382 K/uL (130-400); RED BLOOD CELL COUNT(AUTO) 2.85 MIL/uL (4.50-6.20); RED CELL DISTRIBUTION WIDTH 13.5 % (11.0-15.5); WHITE BLOOD COUNT (AUTO) 6.9 K/uL (4.8-10.8)
[2019-08-01 05:43] LABS: POTASSIUM 3.6 mmol/L (3.5-5.1)
[2019-08-01] MEDS: ZOSYN 3.375GM+NS 50ML 50 ML IV SCH ×3 (05:46→22:26)
[2019-08-01] MEDS: IPRATROPIUM/ALBUTEROL SULFATE 3 ML SOLUTION IH SCH ×3 (07:10→19:01)
[2019-08-01 07:30] VITALS: BP 148/65
[2019-08-01] MEDS: CARBIDOPA PO SCH ×2 (09:05→23:43)
[2019-08-01] MEDS: LEVODOPA PO SCH ×2 (09:05→23:43)
[2019-08-01] MEDS: FAMOTIDINE/PF 20 MG/2 ML VIAL IV SCH ×2 (09:07→22:26)
[2019-08-01 11:00] VITALS: BP 135/70
[2019-08-01 16:00] VITALS: BP 159/75
[2019-08-01] MEDS: FUROSEMIDE 10 MG/ML 2ML VIAL IV SCH (18:07)
[2019-08-01] MEDS ORDERED: TRAZODONE HCL 50 MG TAB PO ONE (21:00)
[2019-08-01 21:58] VITALS: BP 149/72
[2019-08-02 00:09] VITALS: BP 160/84
[2019-08-02] MEDS: ZOSYN 3.375GM+NS 50ML 50 ML IV SCH ×2 (04:25→15:24)
[2019-08-02 04:55] VITALS: BP 113/64
[2019-08-02] MEDS: IPRATROPIUM/ALBUTEROL SULFATE 3 ML SOLUTION IH SCH ×3 (06:42→11:20)
[2019-08-02 08:00] VITALS: BP 151/84
[2019-08-02] MEDS: GUAIFENESIN-CODEINE 5 ML SYRUP PO PRN ×2 (08:38→15:24)
[2019-08-02] MEDS: FAMOTIDINE/PF 20 MG/2 ML VIAL IV SCH (08:38)
[2019-08-02] MEDS: LEVODOPA PO SCH (08:39)
[2019-08-02] MEDS: CARBIDOPA PO SCH (08:39)
[2019-08-02] MEDS ORDERED: LEVOFLOXACIN 500 MG/D5W 100 ML 100 ML IV SCH (10:15)
--- NOTE | 2019-08-02 11:46 | NUR ---
Nutrition Follow-up: Pt. with Diet order discrepancy: NPO recorded in EMR vs Tube Feeding order not recorded in EMR. Spoke with Nurse Torres regarding this issue. Pt. on TF with Jevity 1.5@50ml/hr, as per care trends. Pt. tolerating TF well with 5ml residuals. Labs reviewed(Alb 3.2). LBM: 08/02/19. SR-19, elastic. Recommendations: 1) Continue current Tube Feedings. 2) Rec. 175ml free water flushes every 6 hrs. 3) Continue to monitor pt's nutritional status. 4) Consult RD as nutrition concerns arise. Addendum: 08/02/19 at [address] Amended: Links added.
[2019-08-02 12:00] VITALS: BP 148/92
[2019-08-02] MEDS ORDERED: TRAZODONE HCL 50 MG TAB PO PRN (12:00)
--- NOTE | 2019-08-02 14:00 | NUR ---
cm note per amira with Brit[facility] pt approved for [facility]. updated nurse. call also received from chato stahl accepted.
[2019-08-02 16:00] VITALS: BP 145/98
--- NOTE | 2019-08-02 20:00 | NUR ---
DISCHARGE Patient was discharged by day shift nurse. Family members at bedside. AA&O x2. No shortness of breath or distress. Patient on a venti mask. As per report, report to [facility] and call for EMS pickup has been done. Patient will be leaving with a 16 togolese catherine catheter and a 20 gauge to the right forearm. Mittens were left on patient by day shift. EMS has arrived at this time to transfer patient to [facility]. All items and belongings have been taken by family members.
[2019-08-06] MEDS ORDERED: HYDR-4153 PO ×2 (16:16→16:28)
[2019-08-06] MEDS ORDERED: IPRA3AMP24 IH (16:16)
[2019-08-06] MEDS ORDERED: LACT10SO9 PO (16:16)
[2019-08-06] MEDS ORDERED: LEVO500T89 PO (16:25)
[2019-08-06] MEDS ORDERED: GUAIFCF5L PO (16:25)
[2019-08-06] MEDS ORDERED: TRAZ-187 PO (16:25)
[2019-08-06] MEDS ORDERED: FAMO-136 PO (16:25)
== END 2019-08-02 20:00 | DRG 178 ==
LOC: EDH 20:14 → EDHIP 21:44 → OBSVTOIN 21:44 → 3DH 22:30
PROVIDERS: ADMIT Internal Medicine Pulmonary Disease; ATTEND Internal Medicine Pulmonary Disease
PROC: 0DH63UZ Insertion of Feeding Device into Stomach, Percutaneous Approach (ICD-10-PCS; principal; 2019-07-21)
DX: J69.0 Pneumonitis due to inhalation of food and vomit (principal); N39.0 Urinary tract infection, site not specified; G20 Parkinson's disease; R13.12 Dysphagia, oropharyngeal phase; D64.9 Anemia, unspecified; F02.80 Dementia in other diseases classified elsewhere, unspecified severity, without behavioral disturbance, psychotic disturbance, mood disturbance, and anxiety; M19.90 Unspecified osteoarthritis, unspecified site; R62.7 Adult failure to thrive; R31.9 Hematuria, unspecified; B96.5 Pseudomonas (aeruginosa) (mallei) (pseudomallei) as the cause of diseases classified elsewhere; I10 Essential (primary) hypertension; Z66 Do not resuscitate; R32 Unspecified urinary incontinence; N40.1 Benign prostatic hyperplasia with lower urinary tract symptoms; Z90.49 Acquired absence of other specified parts of digestive tract; Z68.23 Body mass index [BMI] 23.0-23.9, adult; Z82.49 Family history of ischemic heart disease and other diseases of the circulatory system; Z82.3 Family history of stroke
CPT/HCPCS: 36415; 43246; 71045; 71275; 74230; 80048; 80053; 81001; 82550; 82948; 83605; 83874; 83880; 84145; 84484; 85025; 85027; 85610; 85730; 87040; 87077; 87088; 87186; 87804; 92611; 93005; 93970; 94640; 94664; 94667; 94668; 97039; A4338; A4344; A6250; G0378; J0360; J0690; J0696; J1200; J1650; J1940; J1956; J2060; J2543; J2704; J3370; J3490; J7030; Q9967